=== PATIENT | female | born 1935 | race Caucasian/White ===

== ENCOUNTER → 2023-09-18 09:58 | Outpatient (REF) | payer MEDICARE, OTHER, SELFPAY | LOC: RAD 09:58 | PROVIDERS: ATTENDING PHYSICIAN Internal Medicine | DX: R13.10 Dysphagia, unspecified (principal) | CPT/HCPCS: 74230; 92611 ==

== ENCOUNTER → 2023-12-05 14:26 | Outpatient (REF) | payer MEDICARE, OTHER, SELFPAY | LOC: HWRAD 14:26 | PROVIDERS: ATTENDING PHYSICIAN Nurse Practitioner Adult Health; FAMILY PHYSICIAN Internal Medicine | DX: R22.1 Localized swelling, mass and lump, neck (principal); E03.9 Hypothyroidism, unspecified | CPT/HCPCS: 76536 ==